=== PATIENT | male | born 1985 | race Caucasian/White ===

== ENCOUNTER 2021-02-15 09:51 | Emergency (ER) | payer MEDICAID, SELFPAY ==
[2021-02-15 09:58] VITALS: BP 133/82; PULSE 76; RESP 16; TEMP 36.1; O2SAT 98; BMI 27.3
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
[2021-02-15] MEDS: Butalb/Acetamin/Caff 50/325/40 TABLET 1 TAB PO (10:54)
== END 2021-02-15 11:24 | disposition home or self-care (01) ==
PROVIDERS: Emergency Provider Emergency Medicine Emergency Medical Services; PCP Internal Medicine
DX: H53.8 Other visual disturbances (principal); F12.90 Cannabis use, unspecified, uncomplicated
CPT/HCPCS: 96372; 99284

== ENCOUNTER 2022-09-08 09:43 | Emergency (ER) | payer OTHER, SELFPAY ==
[2022-09-08 09:50] VITALS: BP 140/86; PULSE 85; RESP 18; TEMP 36.6; O2SAT 98; BMI 29.0
[2022-09-08] MEDS: Acetaminophen 325 MG TABLET 650 MG PO (09:56)
[2022-09-08 12:01] LABS: MANUAL DIFF FLAG NO
[2022-09-08 12:04] LABS: Basophils Percent Auto 0.2 % (0-2); Eosinophils Absolute Auto 0.1 X10*3/uL (0.0-0.4); Eosinophils Percent Auto 1.2 % (0-4); Hematocrit 44.2 % (42.0-52.0); Hemoglobin 14.7 g/dl (14.0-18.0); Imm Gran Abs Auto 0.03 X10*3/uL (0.00-0.03); Imm Gran Pct Auto 0.3 % (0.0-0.4); Lymphocytes Percent Auto 22.8 % (20-40); Mean Corpuscular HGB Conc 33.3 g/dl (31.0-36.0); Mean Corpuscular Hemoglobin 29.8 pg (27.0-33.0); Mean Corpuscular Volume 89.5 fL (80.0-98.0); Mean Platelet Volume 10.2 fL (9.4-12.4); Monocytes Absolute Auto 0.9 X10*3/uL (0.1-1.2); Monocytes Percent Auto 9.8 % (2-11); Neutrophils Absolute Auto 5.7 x10*3/uL (2.0-8.3); Neutrophils Percent Auto 65.7 % (45-73); Platelet Count 331 X10*3/uL (160-400); Red Blood Count 4.94 X10*6/uL (4.60-5.80); Red Cell Distribution Width 13.1 % (11.0-16.0); White Blood Count 8.7 X10*3/uL (4.8-10.8)
[2022-09-08 12:24] LABS: Anion Gap 16 (12-20); Blood Urea Nitrogen 15 mg/dL (9-16); Calcium 10.1 mg/dL (8.4-10.2); Carbon Dioxide 26 mmol/L (22-29); Chloride 104 mmol/L (96-108); Creatinine Clr Calc Pharmacy 117.7; Estimated Glomerular Filt Rate > 60; Glucose Random 85 mg/dL (60-115); Potassium 4.8 mmol/L (3.3-5.1); Sodium 141 mmol/L (135-145)
[2022-09-08 12:49] VITALS: BP 134/91; PULSE 60; TEMP 36.7; O2SAT 99
--- NOTE | 2022-09-08 13:04 | ED.GENADULT ---
HPI - General Adult General Chief complaint: Headache Stated complaint: headaches/flickering in L eye Time Seen by Provider: 09/08/22 13:02 Source: patient Mode of arrival: ambulatory Limitations: no limitations History of Present Illness HPI narrative: Patient is a 37 year old assigned male at with a history of migraines presenting to the emergency department today with left eye flickering and a headache. Patient states that starting this morning his left eye began to have flashes of light and then he began to have a headache. Patient states that he sometimes has migraines but they don't always have eye flashes like this. Patient denies any dizziness, lightheadedness, abdominal pain, nausea, vomiting, fever, chills, blurry vision, double vision, loss of vision, chest pain, difficulty breathing, shortness of breath, back pain, night sweats, pain with urination, increased urinary frequency, increased urinary urgency, blood in his urine or stool, syncope or a near syncopal episode, recent trauma or falls, bowel incontinence, bladder incontinence, bowel retention, bladder retention, or any other complaints at this time. Onset (ago): hour(s) Location: head Radiation: non-radiation Severity: mild Severity scale (1-10): 3 Relieving factors: none Exacerbating factors: none Associated symptoms: denies other symptoms Treatments prior to arrival: none Related Data Previous Rx's Medication Instructions Recorded ekdlclorho-xumfeqjxtpfdp-vwjmmobr 1 cap PO Q6H PRN pain #10 caps 02/15/21 50 mg-300 mg-40 mg capsule (Fioricet) Allergies Allergy/AdvReac Type Severity Reaction Status Date / Time hydroxyzine Allergy Intermediate rash Verified 09/08/22 09:50 amoxicillin Allergy Mild hives Verified 09/08/22 09:50 penicillin V Allergy Mild hives Verified 09/08/22 09:50 Penicillins Allergy Mild Unknown Verified 09/08/22 09:50 cillin Allergy Unknown Unknown Uncoded 09/08/22 09:50 Review of Systems Constitutional: Constitutional: Reports no additional constitutional complaints, Denies chills, Denies fever(s), Reports headache(s) and Denies night sweats Eyes: Eyes: Reports no additional eye complaints, Denies blurry vision, Denies change in vision, Denies diplopia, Denies eye discharge, Denies loss of vision and Denies eye pain ENT: Denies dizziness and Reports headache(s) Cardiovascular: Cardiovascular: Reports no additional cardiovascular complaints, Denies chest pain, Denies lightheadedness, Denies Loss of Consciousness and Denies dyspnea Respiratory: Respiratory: Reports no additional respiratory complaints and Denies dyspnea Gastrointestinal: Gastrointestinal: Reports no additional gastrointestinal complaints, Denies abdominal pain, Denies melena, Denies hematochezia, Denies change in bowel habits and Denies change in stool character Genitourinary: Genitourinary: Reports no additional male genitourinary complaints, Denies hematuria, Denies oliguria, Denies difficulty urinating, Denies dysuria, Denies urinary frequency, Denies urinary hesitancy, Denies urinary incontinence and Denies urinary urgency Musculoskeletal: Musculoskeletal: Reports no additional musculoskeletal complaints, Denies numbness and Denies tingling Neurologic: Denies dizziness, Reports headache(s), Denies loss of vision, Denies numbness and Denies tingling Psychiatric: Psychiatric: Reports no additional psychiatric complaints Endocrine: Endocrine: Reports no additional endocrine complaints Hematologic/Lymphatic: Hematologic/Lymphatic: Reports no additional hematologic/lymphatic complaints Allergic/Immunologic: Allergic/Immunologic: Reports no additional allergic/immunologic complaints [facility] Past Medical History Attestation statement: The following information was validated with the patient. Source: old records reviewed Medical History Anxiety and depression Concussion Insomnia Liver cyst Social History Social History Substance Use Type: Marijuana Advance Directives: No Advance Directives Information Provided: No Physical Exam ED Vital Signs: Vital Signs - 24 hr 09/08/22 09:50 09/08/22 12:49 Temperature 97.8 F 98.0 F Pulse Rate 85 60 Respiratory Rate 18 Blood Pressure 140/86 H 134/91 H Pulse Oximetry 98 99 Oxygen Delivery Method Room Air Room Air BMI result Body Mass Index 29.0 Const General: cooperative, no acute distress, alert and awake Nutritional Appearance: well nourished Orientation/consciousness: patient oriented x3 Limitations: no limitations HENMT Head: Yes normal to inspection and Yes atraumatic Ears: hearing grossly normal bilaterally and external ears normal General nose exam: Normal external nose present, no nasal discharge noted and no epistaxis Face and sinus: Yes normal facial exam, No abrasion and No laceration Mouth: Normal oral and palatal mucosa present, no drooling and no muffled voice Eyes General: appearance normal, both eyes and all related structures Periorbital: periorbital findings normal Eyelids: Yes eyelids normal Conjunctivae: conjunctivae normal Pupils: Equal, round and reactive pupils present EOM: EOMs intact bilaterally Neck Neck: Yes normal visual inspection, Yes full ROM and Yes no lymphadenopathy Chest Chest palpation & inspection: normal inspection of the chest Resp Effort & Inspection: normal respiratory effort and able to speak in complete sentences Auscultation: clear to auscultation bilaterally Cardio Rate: regular rate Rhythm: regular rhythm GI Inspection: Yes normal to inspection Neuro General: patient oriented x3 and moves all extremities Cranial nerves: Yes Equal, round and reactive pupils present Cognition (Neuro): normal cognition Motor exam (neuro): 5/5 motor strength present throughout Sensory Exam: Normal double simultaneous stimulation for sensation Coordination: sgzfrs-rh-foon test normal Extrem General: Yes normal to inspection, Yes full ROM and Yes capillary refill normal Psych Appearance: grossly normal Mental Status: mental status grossly normal Affect: normal affect Attitude: cooperative Thought process: Normal thought process present Thought content: Normal thought content present Insight: Good insight present (Psych) Medical Decision Making MDM Narrative Medical decision making narrative: Patient is a 37 year old assigned male at with a history of migraines presenting to the emergency department today with a headache. Patient's physical exam was unremarkable. Patient's blood work was unremarkable. Patient's current clinical presentation is most consistent with a migraine headache. I explained my physical exam findings as well as all test results to the patient. I answered all questions asked by the patient. Patient received PO Tylenol in Triage which he stated helped resolved his pain entirely. I stressed the importance of the patient taking his medication as prescribed. I stressed the importance of the patient following up with his primary care provider. I stressed the importance of the patient returning to the emergency department immediately if his symptoms were to worsen or if he were to develop any dizziness, shortness of breath, difficulty breathing, chest pain, blurry vision, loss of vision, nausea, vomiting, abdominal pain, fever, chills, back pain, or any other complaints. Patient verbalized agreement and understanding with this treatment plan and discharge. Medical Records Medical records reviewed: Yes I reviewed the patient's medical records. Lab Data Lab results reviewed: Yes I reviewed the patient's lab results. Result diagrams: 09/08/22 11:42 09/08/22 11:42 Labs: Lab Results 09/08/22 09/08/22 09/08/22 Range/Units 11:42 11:42 13:08 WBC 8.7 (4.8-10.8) X10*3/uL RBC 4.94 (4.60-5.80) X10*6/uL Hgb 14.7 (14.0-18.0) g/dl Hct 44.2 (42.0-52.0) % MCV 89.5 (80.0-98.0) fL MCH 29.8 (27.0-33.0) pg MCHC 33.3 (31.0-36.0) g/dl RDW 13.1 (11.0-16.0) % Plt Count 331 (160-400) X10*3/uL MPV 10.2 (9.4-12.4) fL Immature Gran % (Auto) 0.3 (0.0-0.4) % Neut % (Auto) 65.7 (45-73) % Lymph % (Auto) 22.8 (20-40) % [place] % (Auto) 9.8 (2-11) % Eos % (Auto) 1.2 (0-4) % Baso % (Auto) 0.2 (0-2) % Lymph # (Auto) 2.0 (1.2-4.9) X10*3/uL [place] # (Auto) 0.9 (0.1-1.2) X10*3/uL Eos # (Auto) 0.1 (0.0-0.4) X10*3/uL Baso # (Auto) 0.0 (0.0-0.2) X10*3/uL Abs Immat Gran (auto) 0.03 (0.00-0.03) X10*3/uL Absolute Neuts (auto) 5.7 (2.0-8.3) x10*3/uL Absolute Nucleated RBC 0.000 (0.0-0.012) X10*3/uL Nucleated RBC % (auto) 0.0 (0.0-0.2) /100WBC Sodium 141 (135-145) mmol/L Potassium 4.8 (3.3-5.1) mmol/L Chloride 104 (96-108) mmol/L Carbon Dioxide 26 (22-29) mmol/L Anion Gap 16 (12-20) BUN 15 (9-16) mg/dL Creatinine 0.89 (0.5-1.4) mg/dL Estim Creat Clear Calc 117.7 Estimated GFR > 60 Random Glucose 85 (60-115) mg/dL Calcium 10.1 (8.4-10.2) mg/dL COVID-19 ([facility]) (Negative) COVID-19 Clin Com Influenza Type A (FIFI) Negative (Negative) Influenza Type B (FIFI) Negative (Negative) Influenza A & B Note See Note 09/08/22 Range/Units 13:09 WBC (4.8-10.8) X10*3/uL RBC (4.60-5.80) X10*6/uL Hgb (14.0-18.0) g/dl Hct (42.0-52.0) % MCV (80.0-98.0) fL MCH (27.0-33.0) pg MCHC (31.0-36.0) g/dl RDW (11.0-16.0) % Plt Count (160-400) X10*3/uL MPV (9.4-12.4) fL Immature Gran % (Auto) (0.0-0.4) % Neut % (Auto) (45-73) % Lymph % (Auto) (20-40) % [place] % (Auto) (2-11) % Eos % (Auto) (0-4) % Baso % (Auto) (0-2) % Lymph # (Auto) (1.2-4.9) X10*3/uL [place] # (Auto) (0.1-1.2) X10*3/uL Eos # (Auto) (0.0-0.4) X10*3/uL Baso # (Auto) (0.0-0.2) X10*3/uL Abs Immat Gran (auto) (0.00-0.03) X10*3/uL Absolute Neuts (auto) (2.0-8.3) x10*3/uL Absolute Nucleated RBC (0.0-0.012) X10*3/uL Nucleated RBC % (auto) (0.0-0.2) /100WBC Sodium (135-145) mmol/L Potassium (3.3-5.1) mmol/L Chloride (96-108) mmol/L Carbon Dioxide (22-29) mmol/L Anion Gap (12-20) BUN (9-16) mg/dL Creatinine (0.5-1.4) mg/dL Estim Creat Clear Calc Estimated GFR Random Glucose (60-115) mg/dL Calcium (8.4-10.2) mg/dL COVID-19 ([facility]) Negative (Negative) COVID-19 Clin Com See Note Influenza Type A (FIFI) (Negative) Influenza Type B (FIFI) (Negative) Influenza A & B Note Discharge Plan Discharge Clinical Impression: Migraine Patient Disposition: Home, Self-Care Instructions: Migraine Headache (ED) Additional Instructions: Follow up with your primary care provider. Return to the emergency department immediately if your symptoms worsen or if you develop any dizziness, shortness of breath, difficulty breathing, chest pain, blurry vision, loss of vision, nausea, vomiting, abdominal pain, fever, chills, back pain, or any other complaints. Prescriptions: No Action jldepjvurc-zirotlnariacs-bzwc [Fioricet] 50-300-40 mg capsule 1 cap PO Q6H PRN (Reason: pain) Qty: 10 0RF Referrals: Bladimir Hawk MD [Primary Care Provider] - Stand Alone Forms: Work/School Release Print Language: Divehi
[2022-09-08 13:32] LABS: Influenza A Negative (Negative); Influenza B2 Negative (Negative)
[2022-09-08 13:32] LABS: COVID-19 Test Negative (Negative); IDNOW Serial# 16C4AD1C
== END 2022-09-08 13:53 | disposition home or self-care (01) ==
PROVIDERS: Physician Assistant Medical; Emergency Provider Student in an Organized Health Care Education/Training Program; PCP Internal Medicine
DX: G43.909 Migraine, unspecified, not intractable, without status migrainosus (principal); Z20.822 Contact with and (suspected) exposure to COVID-19; Z79.899 Other long term (current) drug therapy
CPT/HCPCS: 36415; 80048; 85025; 87502; 87635; 99283

== ENCOUNTER 2022-10-01 11:52 | Emergency (ER) | payer OTHER, SELFPAY ==
[2022-10-01 13:13] VITALS: BP 120/79; PULSE 85; RESP 18; TEMP 36.6; O2SAT 98; BMI 28.1
[2022-10-01 13:38] LABS: Influenza A Negative (Negative); Influenza B2 Negative (Negative)
[2022-10-01 13:50] LABS: COVID-19 Test Negative (Negative); IDNOW Serial# 16C4AD1C
--- NOTE | 2022-10-01 17:49 | ED.GENADULT ---
HPI - General Adult General Chief complaint: Upper Respiratory Symptoms Stated complaint: Body aches/Chills Time Seen by Provider: 10/01/22 16:35 Source: patient Mode of arrival: ambulatory Limitations: no limitations History of Present Illness HPI narrative: 37-year-old male presents to the ED for couple of days of coughing with green phlegm and body aches nasal congested. Patient admits to being a smoker. Patient states daughter positive for flu. Patient denies any chest pain or shortness of breath Related Data Previous Rx's Medication Instructions Recorded acsyjshdjl-ivlvepehvntmz-mocuzlfp 1 cap PO Q6H PRN pain #10 caps 02/15/21 50 mg-300 mg-40 mg capsule (Fioricet) albuterol sulfate 90 mcg/actuation 2 puff inhalation Q4-6H PRN 10/01/22 aerosol inhaler shortness of breath or wheezing #8.5 grams azithromycin 250 mg tablet See Rx Instructions PO .COMPLEX #6 10/01/22 tabs Allergies Allergy/AdvReac Type Severity Reaction Status Date / Time hydroxyzine Allergy Intermediate rash Verified 10/01/22 13:13 amoxicillin Allergy Mild hives Verified 10/01/22 13:13 penicillin V Allergy Mild hives Verified 09/08/22 09:50 Penicillins Allergy Mild Unknown Verified 09/08/22 09:50 cillin Allergy Unknown Unknown Uncoded 09/08/22 09:50 Review of Systems Review of Systems: Coughing green phlegm. Body aches Yes all other systems are reviewed and are negative PMFSH Past Medical History Medical History Anxiety and depression Concussion Insomnia Liver cyst Social History Social History Substance Use Type: Marijuana Advance Directives: No Advance Directives Information Provided: No Physical Exam ED Vital Signs: Vital Signs - 24 hr 10/01/22 13:13 Temperature 97.8 F Pulse Rate 85 Respiratory Rate 18 Blood Pressure 120/79 Pulse Oximetry 98 Oxygen Delivery Method Room Air BMI result Body Mass Index 28.1 Const General: cooperative, healthy appearing, comfortable, no acute distress, well developed, alert, awake and Physically active Orientation/consciousness: oriented to person, oriented to place, oriented to time and patient oriented x3 HENMT Head: Yes normal to inspection, Yes No palpable skull fracture present, Yes normocephalic, Yes atraumatic and No abrasion Ears: hearing grossly normal bilaterally, external ears normal, TM's normal bilaterally, EAC's normal, mastoids normal and no periauricular adenopathy General nose exam: Normal external nose present and Normal nares present Face and sinus: Yes normal facial exam and Yes sinuses nontender Throat: Yes posterior oropharynx normal, Yes tonsils normal and Yes uvula midline Eyes General: appearance normal, both eyes and all related structures Neck Neck: Yes normal visual inspection, Yes full ROM, Yes no lymphadenopathy, Yes no meningeal signs, Yes trachea midline, Yes supple, No anterior neck swelling and No tender Chest Chest palpation & inspection: normal inspection of the chest and normal palpation of entire chest wall Resp Effort & Inspection: normal respiratory effort and able to speak in complete sentences Auscultation: clear to auscultation bilaterally Cardio Jugular venous distension: no JVD Heart sounds: S1 normal heart sound present and S2 normal heart sound present GI Inspection: Yes normal to inspection and No abdominal wall ecchymosis Palpation (GI): Soft to palpation, not firm, nontender, no guarding and not rigid General: No CVA tenderness and Yes no CVA tenderness Back/Spine/Pelvis Back: no CVA tenderness, No CVA tenderness and No back tenderness Skin General skin exam: no rashes or lesions noted and elasticity normal Neuro General: oriented to person, oriented to place, oriented to time, patient oriented x3, gait normal, no meningeal signs, no focal motor deficits and CN's II-XI intact bilaterally Cranial nerves: Yes CN's II-XII intact bilaterally Extrem General: Yes normal to inspection and Yes full ROM Psych Appearance: grossly normal, well kempt and not disheveled Course Course Course Narrative: COVID influenza swab ordered Reevaluation(s) Reevaluation #1: Covid and INfluenza swab negative. BRonchitits. discharge with albuterol and azithromycin Medical Decision Making Lab Data Labs: Lab Results 10/01/22 10/01/22 Range/Units 13:18 13:18 COVID-19 ([facility]) Negative (Negative) COVID-19 Clin Com See Note Influenza Type A (FIFI) Negative (Negative) Influenza Type B (FIFI) Negative (Negative) Influenza A & B Note See Note Discharge Plan Discharge Clinical Impression: Bronchitis Patient Disposition: Home, Self-Care Instructions: Acute Bronchitis (ED) Additional Instructions: Return to the ED immediately for any chest pain, shortness of breath, coughing up blood, weakness, dizziness, trach for fever, chills, leg swelling, calf pain, chest pain inspiration, or any other concerning symptoms. Prescriptions: New albuterol sulfate 90 mcg/actuation HFA aerosol inhaler 2 puff inhalation Q4-6H PRN (Reason: shortness of breath or wheezing) Qty: 8.5 0RF azithromycin 250 mg tablet See Rx Instructions .ROUTE .COMPLEX Qty: 6 0RF Rx Instructions: For 250 mg dose pack: take 500 mg today (day 1), then 250 mg for 4 days (days 2-5) No Action usjorwvoab-wrgnxwmmtxbci-kcid [Fioricet] 50-300-40 mg capsule 1 cap PO Q6H PRN (Reason: pain) Qty: 10 0RF Referrals: Po,Bladimir Shanks MD [Primary Care Provider] - (Bronchitits) Stand Alone Forms: Work/School Release Interventions: ED Discharge Assessment Last Done: 10/01/22 18:09 Discharge Date/Time: 10/01/22 18:10 Print Language: Icelandic
== END 2022-10-01 18:10 | disposition home or self-care (01) ==
PROVIDERS: Emergency Provider Student in an Organized Health Care Education/Training Program; PCP Internal Medicine
DX: J40 Bronchitis, not specified as acute or chronic (principal); M79.10 Myalgia, unspecified site; R05.9 Cough, unspecified; Z20.822 Contact with and (suspected) exposure to COVID-19; Z79.899 Other long term (current) drug therapy
CPT/HCPCS: 87502; 87635; 99282; 99283

== ENCOUNTER 2025-03-08 21:36 | Emergency (ER) | payer MEDICAID, SELFPAY ==
[2025-03-08 21:46] VITALS: BP 117/77; PULSE 80; RESP 19; TEMP 36.7; O2SAT 96; BMI 32.9
[2025-03-08 22:39] LABS: Influenza A PCR NEGATIVE (Negative); Influenza B PCR NEGATIVE (Negative); Resp Syncy Virus RNA Qual PCR NEGATIVE (Negative); SARS COV2 PCR INHOUSE NEGATIVE (Negative)
[2025-03-08 23:13] VITALS: BP 133/82; PULSE 77; RESP 16; TEMP 36.4; O2SAT 97
--- NOTE | 2025-03-09 00:11 | ED.GENADULT ---
HPI - General Adult General Chief complaint: Ear Problems Stated complaint: rt ear infection? Time Seen by Provider: 03/08/25 22:58 Source: patient Limitations: no limitations History of Present Illness ED Provider: Qian Brennan PA-C HPI narrative: 39-year-old male presents with right ear pain x1 week. Associated nasal congestion. Denies fever. Related Data Previous Rx's ?Medication ?Instructions ?Recorded ynipcztfel-tiqsohzjiyzbo-ajxhkbij 1 cap PO Q6H PRN pain #10 caps 02/15/21 50 mg-300 mg-40 mg capsule (Fioricet) albuterol sulfate 90 mcg/actuation 2 puff inhalation Q4-6H PRN 10/01/22 aerosol inhaler shortness of breath or wheezing #8.5 grams azithromycin 250 mg tablet See Rx Instructions PO .COMPLEX #6 10/01/22 tabs azithromycin 250 mg tablet 250 mg PO DAILY 4 days #4 tabs 03/09/25 Allergies Allergy/AdvReac Type Severity Reaction Status Date / Time hydroxyzine Allergy Intermediate rash Verified 03/08/25 21:48 amoxicillin Allergy Mild hives Verified 03/08/25 21:48 penicillin V Allergy Mild hives Verified 03/08/25 21:48 Penicillins Allergy Mild Unknown Verified 03/08/25 21:48 cillin Allergy Unknown Unknown Uncoded 03/08/25 21:48 Review of Systems Review of Systems: Yes all other systems are reviewed and are negative Constitutional: Constitutional: Denies fatigue and Denies fever(s) ENT: Reports otalgia and Reports nasal congestion Cardiovascular: Cardiovascular: Denies chest pain and Denies dyspnea Respiratory: Respiratory: Denies cough and Denies dyspnea Gastrointestinal: Gastrointestinal: Denies abdominal pain, Denies nausea and Denies vomiting Endocrine: Endocrine: Denies fatigue [facility] Past Medical History Attestation statement: The following information was validated with the patient. Medical History Anxiety and depression Concussion Insomnia Liver cyst Social History Social History Smoked in Last 30 Days: No Use of substances other than those prescribed or required for medical reasons: Yes Substance Use Type: Marijuana Advance Directives: No Advance Directives Information Provided: Yes Do you have a plan to hurt others: No Plan Physical Exam ED Vital Signs: Vital Signs - 24 hr 04/13/25 21:46 03/08/25 23:13 Temperature 98.0 F 97.6 F Pulse Rate 80 77 Respiratory Rate 19 16 Blood Pressure 117/77 133/82 Pulse Oximetry 96 97 Oxygen Delivery Method Room Air Room Air BMI result Body Mass Index 32.9 Const Other: Alert well-appearing Orientation/consciousness: patient oriented x3 HENMT Other: Right tragal tenderness, the TM is dull with the overlying erythema, there was no exudate in the external ear canal Resp Effort & Inspection: normal respiratory effort Cardio Other: Normal peripheral perfusion Skin Other: Warm dry no rash Neuro General: patient oriented x3, gait normal, no focal motor deficits and CN's II-XI intact bilaterally Psych Other: Cooperative Medications Administered Discontinued Medications Generic Name Dose Route Start Last Admin Trade Name Freq PRN Reason Stop Dose Admin Azithromycin 500 mg 03/09/25 00:10 03/09/25 00:22 Azithromycin 500 Mg Tablet PO 03/09/25 00:11 500 mg ONCE ONE Administration Medical Decision Making Medical Decision Making [facility] Narrative: 39-year-old male presents with right ear pain x1 week. Associated nasal congestion. Denies fever. No relevant chronic issues History: Per patient I have considered the following differential diagnoses: Om, OE, serous otitis, mastoiditis Plan: Patient has evidence of otitis media, he has no complaint of headache swelling or redness over the mastoid, we will treat accordingly no indication for labs or imaging. Lab Data Labs: Lab Results 03/08/25 Range/Units 21:56 Influenza Type A (PCR) NEGATIVE (Negative) Influenza Type B (PCR) NEGATIVE (Negative) RSV RNA Qual (PCR) NEGATIVE (Negative) SARS-CoV-2 RNA (RT-PCR) NEGATIVE (Negative) Discharge Plan Discharge Clinical Impression: Acute otitis media, right Patient Disposition: Home, Self-Care Instructions: Ear Infection (ED) Additional Instructions: You have an infection of the right ear. See home care instructions. To note the viral panel that was obtained was negative. Take the azithromycin as directed, you received your 1st dose overnight in the emergency room. Follow up with your primary care provider as needed. Prescriptions: New azithromycin 250 mg tablet 250 mg PO DAILY 4 Days Qty: 4 0RF Rx Instructions: start on day 2 of therapy No Action fkrcgsttvu-axumiyivnebio-vuci [Fioricet] 50-300-40 mg capsule 1 cap PO Q6H PRN (Reason: pain) Qty: 10 0RF albuterol sulfate 90 mcg/actuation HFA aerosol inhaler 2 puff inhalation Q4-6H PRN (Reason: shortness of breath or wheezing) Qty: 8.5 0RF azithromycin 250 mg tablet See Rx Instructions .ROUTE .COMPLEX Qty: 6 0RF Rx Instructions: For 250 mg dose pack: take 500 mg today (day 1), then 250 mg for 4 days (days 2-5) Stand Alone Forms: Work/School Release Interventions: ED Discharge Assessment Last Done: 03/09/25 00:20 Discharge Date/Time: 03/09/25 00:30 Print Language: Togolese
[2025-03-09 00:20] VITALS: BP 133/82; PULSE 77; RESP 16; TEMP 36.4; O2SAT 97
[2025-03-09] MEDS: Azithromycin 500 MG TABLET PO (00:22)
== END 2025-03-09 00:30 | disposition home or self-care (01) ==
PROVIDERS: Emergency Provider Internal Medicine; PCP Internal Medicine
DX: H66.91 Otitis media, unspecified, right ear (principal); H92.01 Otalgia, right ear; R09.81 Nasal congestion; Z03.818 Encounter for observation for suspected exposure to other biological agents ruled out
CPT/HCPCS: 0241U; 99283; 99284